=== PATIENT | female | born 1945 | race Caucasian/White ===

== ENCOUNTER → 2017-10-09 | Outpatient (CLI) | payer MEDICARE | END | disposition home or self-care (01) | LOC: RAH 13:54 | PROVIDERS: ATTEND Family Medicine | DX: M47.22 Other spondylosis with radiculopathy, cervical region (principal); M50.11 Cervical disc disorder with radiculopathy, high cervical region | CPT/HCPCS: 72125 ==

== ENCOUNTER → 2018-08-14 | Outpatient (CLI) | payer MEDICARE | END | disposition home or self-care (01) | LOC: OIH 16:27 | PROVIDERS: ATTEND Family Medicine | DX: I10 Essential (primary) hypertension (principal); M85.88 Other specified disorders of bone density and structure, other site; M47.814 Spondylosis without myelopathy or radiculopathy, thoracic region | CPT/HCPCS: 71046 ==

== ENCOUNTER → 2019-07-07 | Outpatient (CLI) | payer MEDICARE | END | disposition home or self-care (01) | LOC: SLP 20:23 | PROVIDERS: ATTEND Family Medicine | DX: G47.33 Obstructive sleep apnea (adult) (pediatric) (principal); G47.00 Insomnia, unspecified; J44.9 Chronic obstructive pulmonary disease, unspecified | CPT/HCPCS: 95810 ==

== ENCOUNTER → 2019-07-16 | Outpatient (CLI) | payer MEDICARE | END | disposition home or self-care (01) | LOC: OIH 16:24 | PROVIDERS: ATTEND Family Medicine | DX: J98.11 Atelectasis (principal); I10 Essential (primary) hypertension; Z98.890 Other specified postprocedural states | CPT/HCPCS: 71046 ==